=== PATIENT | female | born 1945 | race Two or more races ===

== ENCOUNTER 2024-11-20 12:47 | Emergency (ER) | payer OTHER ==
[2024-11-20 13:15] VITALS: TEMP 98.1; BMI 29.2
[2024-11-20 16:02] LABS: BASO % 0.9 % (0-2.0); EOS % 1.7 % (0-4.5); HEMATOCRIT 40.2 % (32.4-45.2); HEMOGLOBIN 13.1 GM/dL (10.7-15.3); LYMPH % 20.7 % (8-40); MCH 30.2 pg (25.7-33.7); MCHC 32.6 g/dl (32.0-36.0); MEAN CELL VOLUME 92.6 fl (80-96); MEAN PLT VOLUME 7.4 fl (7.5-11.1); MONO % 7.8 % (3.8-10.2); NEUT % 68.9 % (42.8-82.8); PLATELET COUNT 354 10^3/uL (134-434); RBC 4.34 M/mm3 (3.60-5.2); RDW 13.2 % (11.6-15.6); WHITE BLOOD COUNT 8.3 K/mm3 (4.0-10.0)
[2024-11-20 16:13] LABS: POTASSIUM 3.9 mmol/L (3.5-5.1)
[2024-11-20 16:15] LABS: CALCIUM 9.4 mg/dL (8.5-10.1)
[2024-11-20 16:16] LABS: ALBUMIN 3.3 g/dl (3.4-5.0); BLOOD UREA NITROGEN 15.7 mg/dL (7-18); MAGNESIUM 2.4 mg/dL (1.8-2.4)
[2024-11-20 16:19] LABS: CREATININE 0.7 mg/dL (0.55-1.3)
[2024-11-20 16:20] LABS: BILIRUBIN,TOTAL 0.3 mg/dL (0.2-1)
[2024-11-20 16:21] LABS: TOT PROT 7.2 g/dl (6.4-8.2)
[2024-11-20] MEDS ORDERED: ENOXAPARIN NA (PORCINE) 100 MG/1 ML DISP.SYRIN SQ ONE (18:20)
[2024-11-20] MEDS: ENOXAPARIN NA (PORCINE) 100 MG/1 ML DISP.SYRIN SQ ONE (18:29)
[2024-11-20] MEDS ORDERED: ZOLPIDEM TARTRATE 5 MG TABLET ONE (23:39)
[2024-11-20] MEDS: ZOLPIDEM TARTRATE 5 MG TABLET PO ONE (23:40)
[2024-11-21 02:33] VITALS: BP 116/80; PULSE 82; RESP 18
== END 2024-11-21 02:54 ==
LOC: JER 12:47
DX: I82.432 Acute embolism and thrombosis of left popliteal vein (principal); M79.89 Other specified soft tissue disorders
CPT/HCPCS: 36415; 71275-TC; 80053; 83735; 84484; 85025; 93005; 93010; 93971-TC; 99285-25; Q9967

== ENCOUNTER 2024-11-24 17:15 | Emergency (ER) | payer OTHER ==
[2024-11-24 18:24] VITALS: TEMP 98.2; BMI 27.3
[2024-11-24] MEDS ORDERED: QUEtiapine FUMARATE 25 MG TABLET ONE (22:08)
[2024-11-24] MEDS: QUEtiapine FUMARATE 25 MG TABLET PO ONE (22:16)
[2024-11-25 02:32] VITALS: BP 132/82; PULSE 62; RESP 20
== END 2024-11-25 02:39 ==
LOC: JER 17:15
DX: I82.412 Acute embolism and thrombosis of left femoral vein (principal); I82.432 Acute embolism and thrombosis of left popliteal vein; M79.89 Other specified soft tissue disorders
CPT/HCPCS: 93970-TC; 99284-25

== ENCOUNTER 2025-01-29 14:09 | Emergency (ER) | payer OTHER ==
[2025-01-29 14:25] VITALS: TEMP 98.7; BMI 22.1
[2025-01-29] MEDS ORDERED: HALOPERIDOL LACTATE 5 MG/ML ONE (16:53)
[2025-01-29] MEDS: HALOPERIDOL LACTATE 5 MG/ML IM ONE (17:14)
[2025-01-29 17:48] LABS: ABSOLUTE IMMATURE GRANULOCYTES 0.02 x10^3/uL (0.0-0.031); BASOPHILS # 0.02 x10^3/uL (0.01-0.08); EOSINOPHIL % 0.4 % (0.7-5.8); EOSINOPHILS # 0.03 x10^3/uL (0.04-0.36); HEMATOCRIT 44.4 % (34.1-44.9); HEMOGLOBIN 14.4 g/dL (11.2-15.7); MCHC 32.4 g/dl (32.2-35.5); MEAN CELL VOLUME 92.7 fl (79.4-94.8); MEAN PLT VOLUME 9.5 fl (9.4-12.3); MONOCYTE # 0.34 x10^3/uL (0.24-0.86); MONOCYTE % 4.6 % (4.7-12.5); PLATELET COUNT 329 x10^3/uL (182-369); RDW 13.1 % (12.4-16.6)
[2025-01-29 18:05] LABS: CHLORIDE 106 mmol/L (98-107); SODIUM 136 mmol/L (136-145)
[2025-01-29 18:08] LABS: ALBUMIN 3.4 g/dl (3.4-5.0); BLOOD UREA NITROGEN 12.7 mg/dL (7-18); CO2 29 mmol/L (21-32)
[2025-01-29 18:09] LABS: GLUCOSE,RANDOM 107 mg/dL (74-106); MAGNESIUM 2.4 mg/dL (1.8-2.4)
[2025-01-29 18:11] LABS: SGOT/AST 48 U/L (15-37); SGPT/ALT 12 U/L (13-61)
[2025-01-29 18:12] LABS: CREATININE 0.7 mg/dL (0.55-1.3)
[2025-01-29 18:13] LABS: BILIRUBIN,TOTAL 0.4 mg/dL (0.2-1); TOT PROT 7.7 g/dl (6.4-8.2)
[2025-01-29 18:14] LABS: ALK PHOS 82 U/L (45-117)
[2025-01-29 18:15] LABS: ANION GAP 2 mmol/L (4-13); POTASSIUM 6.8 mmol/L (3.5-5.1)
[2025-01-29 22:02] LABS: POTASSIUM 4.2 mmol/L (3.5-5.1)
[2025-01-29 22:04] LABS: BLOOD UREA NITROGEN 11.7 mg/dL (7-18); CALCIUM 9.8 mg/dL (8.5-10.1)
[2025-01-29 22:08] LABS: CREATININE 0.6 mg/dL (0.55-1.3)
[2025-01-29 23:41] VITALS: BP 128/82; PULSE 72; RESP 17
== END 2025-01-30 05:30 ==
LOC: JER 14:09
PROC: 3E023GC Introduction of Other Therapeutic Substance into Muscle, Percutaneous Approach (ICD-10-PCS; principal; 2025-01-29)
DX: I74.3 Embolism and thrombosis of arteries of the lower extremities (principal); M79.671 Pain in right foot
CPT/HCPCS: 36415; 75635-TC; 80048; 80053; 83735; 85025; 93970-TC; 99291; Q9967